=== PATIENT | male | born 1945 | race Caucasian/White ===

== ENCOUNTER 2017-01-02 15:17 | Inpatient (IN) | payer MEDICARE, OTHER ==
[~2017-01-02] VITALS: Ht 162.6 cm; Wt 90.8 kg
--- NOTE | 2017-01-02 02:45 | NUR ---
RECEIVED PATIENT IN BED AWAKE BUT FORGETFUL, NO SOB NO CHEST PAIN NOTED, NO COMPLAIN OF PAIN NOTED, RHYTHM SINUS RHYTHM CONT TO MONITOR.
[2017-01-02] MEDS ORDERED: ERGO500040 PO (16:13)
[2017-01-02] MEDS ORDERED: ZOLP10TA2 PO (16:13)
[2017-01-02] MEDS ORDERED: LORA-258 PO (16:13)
[2017-01-02] MEDS ORDERED: LACT10SO7 PO (16:13)
[2017-01-02] MEDS ORDERED: SULF1TAB48 PO (16:13)
[2017-01-02] MEDS ORDERED: IBUP-66 PO (16:13)
[2017-01-02] MEDS ORDERED: ASPI81TA31 PO (16:13)
[2017-01-02] MEDS ORDERED: BISA10SU12 RC (16:13)
[2017-01-02] MEDS ORDERED: CIPR-262 PO (16:13)
[2017-01-02] MEDS ORDERED: MAG-55 PO (16:13)
[2017-01-02] MEDS ORDERED: SENN-167 PO (16:13)
[2017-01-02] MEDS ORDERED: SERT50TA PO (16:13)
[2017-01-02] MEDS ORDERED: GABAPENTIN PO (16:13)
[2017-01-02] MEDS ORDERED: MAGN400O6 PO (16:13)
[2017-01-02] MEDS ORDERED: DULO60CA45 PO (16:13)
[2017-01-02] MEDS ORDERED: MULT1TAB11 PO (16:13)
[2017-01-02] MEDS ORDERED: ACET325T53 PO (16:13)
[2017-01-02] MEDS ORDERED: TAMS0.4C34 PO (16:13)
[2017-01-02] MEDS ORDERED: FERR-58 PO (16:13)
[2017-01-02] MEDS ORDERED: METO-304 PO (16:13)
[2017-01-02 16:27] LABS: CARBON DIOXIDE 25 mmol/L (21-32); CHLORIDE 100 mmol/L (98-107); CREATININE 4.4 mg/dL (0.6-1.3); GLUCOSE 127 mg/dL (74-106); POTASSIUM 5.5 mmol/L (3.5-5.1); UREA NITROGEN, BLOOD 50 mg/dL (7-18)
[2017-01-02 16:28] LABS: BASOPHILS # (AUTO) 0.1 K/uL (0.0-8.0); BASOPHILS % (AUTO) 0.4 % (0.0-2.0); EOSINOPHILS # (AUTO) 0.2 K/uL (0.0-0.7); EOSINOPHILS % (AUTO) 1.6 % (0.0-7.0); HEMATOCRIT 33.1 % (40-50); LYMPHOCYTES # (AUTO) 1.8 K/UL (0.8-4.8); MEAN CORPUSCULAR HEMOGLOBIN 31.6 UUG (27.0-31.0); MEAN CORPUSCULAR HGB CONC 33 g/dL (32.0-37.0); MEAN CORPUSCULAR VOLUME 95.3 FL (82.0-92.0); MONOCYTES # (AUTO) 1.5 K/UL (0.1-1.30); MONOCYTES % (AUTO) 10.5 % (0.0-11.0); NEUTROPHILS # (AUTO) 10.5 K/UL (1.8-8.9); NEUTROPHILS % (AUTO) 74.5 % (38.5-71.5); PLATELET COUNT (AUTO) 132 K/UL (150-450); RED BLOOD CELL COUNT(AUTO) 3.47 MIL/UL (4.7-6.1); WHITE BLOOD COUNT (AUTO) 14.1 K/UL (4.0-11.2)
[2017-01-02 16:33] LABS: ALANINE AMINOTRANSFERASE 103 U/L (16-63); ALKALINE PHOSPHATASE 80 U/L (50-136); ASPARTATE AMINOTRANSFERASE 191 U/L (15-37); BILIRUBIN,DIRECT 0.7 mg/dL (0.0-0.2); BILIRUBIN,TOTAL 1.1 mg/dL (0.2-1.0); TOTAL PROTEIN, SERUM 8.2 g/dL (6.4-8.2)
[2017-01-02 16:34] LABS: ACETAMINOPHEN < 2.0 ug/mL (10-30)
[2017-01-02 16:37] LABS: ETHANOL < 3 MG/DL (0-0)
[2017-01-02 17:08] LABS: THYROID STIMULATING HORMONE 3.135 mIU/mL (0.358-3.740)
--- NOTE | 2017-01-02 17:16 | NUR ---
Per Dr. Espinoza pt is not medically clear and will be admitted to tele for rental failure. Call placed to [facility].
--- NOTE | 2017-01-02 17:56 | NUR ---
Per Dr. Espinoza he spoke with Dr. Garcia via telephone and pt may be trans to tele. SBAR report given to Bette.
--- NOTE | 2017-01-02 18:00 | NUR ---
Pt trans to tele, NAD noted.
[2017-01-02 18:29] LABS: *BLOOD, URINE Trace-lysed (NEGATIVE); *COLOR,URINE AMBER (YELLOW); *KETONES,URINE NEGATIVE (NEGATIVE); *PROTEIN,URINE 1+ (NEGATIVE); *UROBILINOGEN,URINE 0.2 E.U./dl (NORMAL); LEUKOCYTE ESTERASE ,URINE NEGATIVE (NEGATIVE); NITRITE, URINE NEGATIVE (NEGATIVE); PH,URINE 5.5 (5.0-8.0); UGLUCOSE NEGATIVE (NEGATIVE)
[2017-01-02 18:30] VITALS: BP 96/51
--- NOTE | 2017-01-02 18:31 | NUR ---
71 year old male received from er via [facility] for acute renal failure to room 224 .v/s are stable ,call light with in reach.
[2017-01-02 18:52] LABS: *AMPHETAMINE, URINE NEGATIVE (NEGATIVE); *BARBITURATE, URINE NEGATIVE (NEGATIVE); *CANNABINOID, URINE NEGATIVE (NEGATIVE); *COCCAINE, URINE NEGATIVE (NEGATIVE); *OPIATE, URINE POSITIVE (NEGATIVE); *PHENCYCLIDINE SCREEN,URINE NEGATIVE (NEGATIVE)
[2017-01-02 18:58] LABS: *BILIRUBIN,URIN 2+ (NEGATIVE); *CLARITY,URINE SLIGHTLY HAZY (CLEAR)
[2017-01-02 19:00] LABS: CALCIUM OXALATE CRYSTALS,UR RARE /HPF (NONE SEEN); MUCUS,URINE FEW /LPF (0-FEW); RBC,URINE 20-50 /HPF (0-3); SQUAMOUS EPITHELIAL CELL,UR FEW /HPF (NONE SEEN); URINE AMORPHOUS URATE FEW /HPF
[2017-01-02 19:13] LABS: BAND % (MANUAL) 26 % (0-10); EOSINOPHILS % (MANUAL) 3 % (0-8); LYMPHOCYTES % (MANUAL) 15 % (20-40); MONOCYTES % (MANUAL) 12 % (2-10); NEUTROPHILS % (MANUAL) 44 % (42-75)
[2017-01-02 20:00] VITALS: BP 101/53
[2017-01-02] MEDS ORDERED: VANCOMYCIN IV 1 G in PREMIXED 0 EACH IV STA (22:07)
[2017-01-02] MEDS ORDERED: ONDANSETRON 4 MG/2 ML VIAL IV PRN (22:15)
[2017-01-02] MEDS ORDERED: CEFTRIAXONE 1 G in IV DEXTROSE 5% 50 ML IV SCH (22:15)
[2017-01-02] MEDS ORDERED: SODIUM POLYSTYRENE SULFONATE 15 G/60 ML LIQUID UDC PO ONE (22:15)
[2017-01-02] MEDS ORDERED: Z GUARD REMEDY PASTE 57 GM TUBE TOP PRN (22:15)
[2017-01-02] MEDS: IV NS 1000 ML 1,000 ML IV PRN (23:04)
[2017-01-02] MEDS ORDERED: SODIUM POLYSTYRENE SULFONATE 15 G/60 ML LIQUID UDC ONE (23:08)
[2017-01-03] VITALS: BP 107/45
[2017-01-03] MEDS ORDERED: VANCOMYCIN IV 200 ML ONE (00:31)
[2017-01-03] MEDS ORDERED: CEFTRIAXONE 1 G VIAL ONE (00:48)
[2017-01-03 04:00] VITALS: BP 101/64
[2017-01-03 04:57] LABS: BASOPHILS # (AUTO) 0.1 K/uL (0.0-8.0); BASOPHILS % (AUTO) 0.6 % (0.0-2.0); EOSINOPHILS # (AUTO) 0.5 K/uL (0.0-0.7); EOSINOPHILS % (AUTO) 4.1 % (0.0-7.0); HEMATOCRIT 33.5 % (40-50); HEMOGLOBIN 10.9 G/DL (14.0-18.0); LYMPHOCYTES # (AUTO) 2.2 K/UL (0.8-4.8); LYMPHOCYTES % (AUTO) 18.6 % (20.5-51.5); MEAN CORPUSCULAR HEMOGLOBIN 31.2 UUG (27.0-31.0); MEAN CORPUSCULAR HGB CONC 33 g/dL (32.0-37.0); MEAN CORPUSCULAR VOLUME 95.7 FL (82.0-92.0); MONOCYTES % (AUTO) 8.4 % (0.0-11.0); NEUTROPHILS # (AUTO) 7.8 K/UL (1.8-8.9); NEUTROPHILS % (AUTO) 68.3 % (38.5-71.5); PLATELET COUNT (AUTO) 137 K/UL (150-450); RED BLOOD CELL COUNT(AUTO) 3.51 MIL/UL (4.7-6.1); WHITE BLOOD COUNT (AUTO) 11.6 K/UL (4.0-11.2)
[2017-01-03 05:26] LABS: CREATININE 3.9 mg/dL (0.6-1.3); MAGNESIUM 1.9 mg/dL (1.8-2.4); PHOSPHOROUS 4.5 mg/dL (2.5-4.9); POTASSIUM 3.8 mmol/L (3.5-5.1); TOTAL PROTEIN, SERUM 8.4 g/dL (6.4-8.2)
[2017-01-03 05:59] LABS: THYROID STIMULATING HORMONE 5.082 mIU/mL (0.358-3.740)
--- NOTE | 2017-01-03 07:15 | NUR ---
PATIENT HAS NO URINE, NOTIFY MD WITH ORDER.
--- NOTE | 2017-01-03 07:15 | NUR ---
PATIENT SLEPT ON AND OFF ALL NIGHT NO SOB NO CHEST PAIN, CALL LIGHT WITHIN REACH. CONT TO MONITOR. RHYTHM SINUS RHYTHM. ENDORSE TO NEXT SHIFT.
--- NOTE | 2017-01-03 08:00 | NUR ---
PATIENT IS HERE AT THE NURSES STATION HE HAD PULLED OFF HIS TELEMETRY HIS IV PUMP BEEPING AND STATED THAT HIS BELONGINGS ARE MISSING ASSISTED HIM BACK TO HIS ROOM CHECKED HIS BELONGINGS AND ALL THAT IS RECORDED ARE ALL PRESENT IN HIS ROOM AND CLOSET HE IS WEARING HIS WATCH AND THE CELL PHONE IS ON HIS BED.PATIENT REASSURED THAT ALL THAT HE BROUGHT IN ARE ALL PRESENT AND THEN HAS STATED OKAY AND HE ALLOWED ME TO REPLACE HIS TELEMETRY AT THIS TIME.
[2017-01-03] MEDS: FERROUS SULFATE 325 MG TABEC PO SCH (08:41)
[2017-01-03] MEDS: METOPROLOL SUCCINATE XL 50 MG TAB.SR.24H PO SCH (08:42)
[2017-01-03] MEDS: ASPIRIN 81 MG TAB.CHEW PO SCH (08:42)
[2017-01-03] MEDS: TAMSULOSIN HCL 0.4 MG CAP.SR.24H PO SCH (08:42)
[2017-01-03] MEDS: LACTULOSE 20 G/30 ML LIQUID UDC PO SCH ×2 (08:53→17:00)
[2017-01-03] MEDS ORDERED: LACTULOSE 20 G/30 ML LIQUID UDC PO SCH (09:00)
[2017-01-03] MEDS: DULOXETINE 60 MG CAPSULE.DR PO SCH (10:37)
[2017-01-03] MEDS: GABAPENTIN 100 MG CAPSULE PO SCH ×3 (10:37→17:08)
[2017-01-03 12:00] VITALS: BP 143/75
--- NOTE | 2017-01-03 14:50 | NUR ---
PATIENT STATED WANTS TO LEAVE AGAINST MEDICAL [facility]VISE STATED THAT HE CALLED [facility] AND THEY ARE READY TO TAKE HIM BACK STATED WILL TAKE THE TAXI DISCONNECTED HIS IV AND REFUSED TO HAVE IT RECONNECTED SO I CALLED THE WIRE ROPE FABRICATION SUPERVISOR SINCE PATIENT THE PATIENT CAME HERE FOR MEDICAL CLEARANCE.THE WIRE ROPE FABRICATION SUPERVISOR STATED THAT SHE CALLED [facility] AND THEY SAID TO TELL HIN TO WAIT UNTIL THURSDAY BUT THE PATIENT IS HERE AT THE NURSES STATED GOING ON AND ON THAT WE CANNOT HOLD HIM AGAINST HIS WILL.CALLED DR CORTES AND LEFT A MESSAGE.
--- NOTE | 2017-01-03 15:00 | NUR ---
DR WHIPPLE STATED THAT PATIENT IS NOT MEDICALLY CLEAR AND CANNOT LEAVE SO THE CRISIS TEAM WAS CALLED TO EVALUATE PATIENT
[2017-01-03 16:00] VITALS: BP 136/76
--- NOTE | 2017-01-03 16:35 | NUR ---
CRISIS TEAM HERE AND PATIENT PLACED ON 72 HOUR HOLD AND ONE ON ONE SITTER FOR OBSERVATION.PATIENT IS MORE COOPERATIVE NOW COMPLIANT WITH HIS MEDICATIONS EXCEPT THE LACTULOSE.
--- NOTE | 2017-01-03 16:53 | NUR ---
Clinical Pharmacy Note: Vancomycin Pharmacy to Dose Subjective: To start vancomycin in this 71 y/o gentleman for "suspected infection."Pt currently in ARF and is NOT on HD Objective: height 162 cm weight 90 kg BUN 54 Scr 3.9 (ARF) WBc 11.6 temp 98.8 vancomycin 1gm given in ER 01/03 @0033 Assessment/Plan Due to ARF, will dose per fall off level for now. No dose for today since 1gm given in ER around midnight. random level ordered with am labs tomorrow due at 0600. Will check level and re-dose as appropriate. Will continue to follow
[2017-01-03] MEDS: SERTRALINE HCL 50 MG TABLET PO SCH (17:08)
--- NOTE | 2017-01-03 17:37 | NUR ---
IVF RESTARTED AT THIS TIME.
[2017-01-03 20:00] VITALS: BP 131/77
--- NOTE | 2017-01-03 20:00 | NUR ---
Received pt on bed alert and awake. Able to make needs known. No acute distress noted. No complaints of pain or discomfort during this time. No SOB noted. Calm and cooperative to care. IV intact and patent. Vital signs stable. Call light within reach. All needs anticipated.
[2017-01-03] MEDS: CEFTRIAXONE 1 G in IV DEXTROSE 5% 50 ML IV SCH (21:06)
[2017-01-03] MEDS: ACETAMINOPHEN 325 MG TABLET PO PRN (21:14)
--- NOTE | 2017-01-03 23:38 | NUR ---
Pt requested to have his IV held during the night. Pt verbalized that he keeps on going to the bathroom that's why he doesn't want to be hooked up with his IV. Explained risk and benefits, but still pt refuses.
[2017-01-04] MEDS: ACETAMINOPHEN 325 MG TABLET PO PRN ×2 (03:49→13:45)
[2017-01-04 05:03] VITALS: BP 110/57
--- NOTE | 2017-01-04 06:50 | NUR ---
Pt slept well throughout the shift. No acute distress noted. No complaints of pain or discomfort. Vital signs stable. Call light within reach. All needs attended.
[2017-01-04 06:57] LABS: BASOPHILS % (AUTO) 0.2 % (0.0-2.0); EOSINOPHILS # (AUTO) 0.3 K/uL (0.0-0.7); EOSINOPHILS % (AUTO) 4.4 % (0.0-7.0); HEMOGLOBIN 10.2 G/DL (14.0-18.0); LYMPHOCYTES # (AUTO) 1.3 K/UL (0.8-4.8); LYMPHOCYTES % (AUTO) 21.9 % (20.5-51.5); MEAN CORPUSCULAR HGB CONC 34 g/dL (32.0-37.0); MEAN CORPUSCULAR VOLUME 97.1 FL (82.0-92.0); MONOCYTES # (AUTO) 0.9 K/UL (0.1-1.30); MONOCYTES % (AUTO) 15.8 % (0.0-11.0); NEUTROPHILS # (AUTO) 3.4 K/UL (1.8-8.9); NEUTROPHILS % (AUTO) 57.7 % (38.5-71.5); PLATELET COUNT (AUTO) 127 K/UL (150-450)
[2017-01-04 07:02] LABS: HEMATOCRIT 29.9 % (40-50); RED BLOOD CELL COUNT(AUTO) 3.08 MIL/UL (4.7-6.1); WHITE BLOOD COUNT (AUTO) 5.9 K/UL (4.0-11.2)
[2017-01-04 07:05] LABS: CREATININE 1.5 mg/dL (0.6-1.3); MAGNESIUM 1.6 mg/dL (1.8-2.4); PHOSPHOROUS 2.6 mg/dL (2.5-4.9)
[2017-01-04 07:34] LABS: POTASSIUM 2.8 mmol/L (3.5-5.1)
--- NOTE | 2017-01-04 08:00 | NUR ---
POTASSIUM LEVEL 2.8 MAG IS 1.[address] TOBIAS CORTES AND HE STATED ON HIS WAY WILL SEE PATIENT.
[2017-01-04] MEDS: TAMSULOSIN HCL 0.4 MG CAP.SR.24H PO SCH (08:11)
[2017-01-04] MEDS: ASPIRIN 81 MG TAB.CHEW PO SCH (08:11)
[2017-01-04] MEDS: GABAPENTIN 100 MG CAPSULE PO SCH ×3 (08:11→17:01)
[2017-01-04] MEDS: DULOXETINE 60 MG CAPSULE.DR PO SCH (08:11)
[2017-01-04] MEDS: FERROUS SULFATE 325 MG TABEC PO SCH (08:11)
[2017-01-04] MEDS: METOPROLOL SUCCINATE XL 50 MG TAB.SR.24H PO SCH (08:12)
[2017-01-04] MEDS: LACTULOSE 20 G/30 ML LIQUID UDC PO SCH ×2 (08:17→17:00)
[2017-01-04] MEDS: IV NS 1000 ML 1,000 ML IV PRN (08:24)
[2017-01-04 08:38] LABS: BAND % (MANUAL) 13 % (0-10); EOSINOPHILS % (MANUAL) 3 % (0-8); LYMPHOCYTES % (MANUAL) 21 % (20-40); METAMYELOCYTES % 1 % (0-1); MONOCYTES % (MANUAL) 13 % (2-10); NEUTROPHILS % (MANUAL) 49 % (42-75)
--- NOTE | 2017-01-04 09:21 | NUR ---
IV SITE INFILTERATED RESTARTED TO HIS LEFT FOREARM AND IVF RESTARTED ORDERED PATIENT REMAINS ON HOLD AT THIS TIME COOPERATIVE AND COMPLIANT WITH HIS MEDICATIONS VOIDING USING THE URINAL.PATIENT INSTRUCTED THAT WE NEED TO KEEP ACCURATE OUT PUT TO ENSURE THAT HE IS VOIDING WELL.
[2017-01-04] MEDS ORDERED: POTASSIUM CHLORIDE 20 MEQ TAB.PRT.SR PO ONE ×2 (10:00→11:15)
[2017-01-04] MEDS ORDERED: MAGNESIUM OXIDE 400 MG TABLET PO ONE (10:00)
--- NOTE | 2017-01-04 10:05 | NUR ---
DR TOBIAS CORTES HERE WITH NEW ORDERS AND NOTED.
[2017-01-04] MEDS ORDERED: VANCOMYCIN IV 1,250 MG in IV DEXTROSE 5% 500 ML IV ONE (11:00)
[2017-01-04] MEDS: HYDROCODONE BIT/HOMATROPINE 5 ML UDC PO PRN ×3 (11:02→23:02)
[2017-01-04] MEDS: POTASSIUM CHLORIDE 10 MEQ CAPSULE.SA PO SCH ×2 (11:03→13:45)
[2017-01-04 11:28] VITALS: BP 140/82
--- NOTE | 2017-01-04 13:48 | NUR ---
Clinical Pharmacy Note: Vancomycin Pharmacy to Dose Subjective: To continue vancomycin in this 71 y/o gentleman for sepsis, UTI, R/O pna. "Pt currently in ARF and is NOT on HD Objective: height 162 cm weight 90 kg BUN 28 Scr 1.5 (ARF) WBC 5.9 temp 98.1 vanco random level: 4.4 (with am labs- post 1gm dose in ED on 01/03 at 0030) Assessment/Plan Due to ARF (srcr decreasing), will dose per fall off level for now. Since vanco random level is low, will give vancomycin 1250mg IVPB x1 today at 1100. Will check random level with am labs tomorrow. Will check level and re-dose as appropriate. Will continue to follow
--- NOTE | 2017-01-04 15:00 | NUR ---
DR RODRIGUEZ HERE TO SEE PATIENT WITH NEW ORDERS AND NOTED.
[2017-01-04] MEDS ORDERED: DULOXETINE 30 MG CAPSULE.DR PO SCH (15:30)
[2017-01-04 16:03] VITALS: BP 143/84
[2017-01-04] MEDS: SERTRALINE HCL 50 MG TABLET PO SCH (17:01)
--- NOTE | 2017-01-04 18:00 | NUR ---
PATIENT REMAINS ON HOLD ORDERED WITH ONE ON ONE SITTER AT THIS TIME CONTINUES TO BE COMPLIANT WITH ALL OF HIS MEDICATIONS EXCEPT REFUSED HIS PM LACTULOSE ALERT ORIENTED AND COOPERATIVE WITH CARE MADE COMFORTABLE AND WILL CONTINUE TO PROVIDE SAFE AND THERAPEUTIC ENVIRONMENT AT ALL TIMES.
--- NOTE | 2017-01-04 19:35 | NUR ---
PT RECEIVED IN BED, AWAKE. 1:1 SITTER AT BEDSIDE FOR SAFETY. A/OX4. ABLE TO MAKE NEEDS KNOWN. V/S STABLE. IN NO ACUTE DISTRESS. NO C/O PAIN AT THIS TIME. IVF INFUSING. PT ON 2L NC, TOLERATING WELL. SAFETY MEASURES IMPLEMENTED. CALL LIGHT WITHIN REACH. WILL CONT TO MONITOR.
[2017-01-04 20:05] VITALS: BP 145/79
[2017-01-04] MEDS: GUAIFENESIN LA 600 MG TABLET.SA PO SCH (20:41)
[2017-01-04] MEDS: CEFTRIAXONE 1 G in IV DEXTROSE 5% 50 ML IV SCH (20:41)
[2017-01-04] MEDS ORDERED: OLANZAPINE ZYDIS 5 MG TAB.RAPDIS PO SCH (21:00)
[2017-01-05] MEDS: IV NS 1000 ML 1,000 ML IV PRN (01:23)
[2017-01-05] MEDS: HYDROCODONE BIT/HOMATROPINE 5 ML UDC PO PRN ×2 (05:23→12:31)
[2017-01-05] MEDS ORDERED: HYDROCODONE BIT/HOMATROPINE 5 ML UDC ONE (05:25)
[2017-01-05 06:01] VITALS: BP 138/81
--- NOTE | 2017-01-05 06:28 | NUR ---
END OF SHIFT NOTES. PT SLEPT WELL THROUGHOUT SHIFT. IN STABLE CONDITION. 1:1 SITTER AT BEDSIDE FOR SAFETY. IVF INFUSING. ALL NEEDS ATTENDED. SAFETY MAINTAINED. CALL LIGHT WITHIN REACH.
[2017-01-05 06:49] LABS: BASOPHILS % (AUTO) 0.2 % (0.0-2.0); EOSINOPHILS # (AUTO) 0.2 K/uL (0.0-0.7); EOSINOPHILS % (AUTO) 6.8 % (0.0-7.0); HEMATOCRIT 29.2 % (40-50); HEMOGLOBIN 10.1 G/DL (14.0-18.0); LYMPHOCYTES % (AUTO) 28.5 % (20.5-51.5); MEAN CORPUSCULAR HEMOGLOBIN 33.4 UUG (27.0-31.0); MEAN CORPUSCULAR HGB CONC 34 g/dL (32.0-37.0); MEAN CORPUSCULAR VOLUME 97.1 FL (82.0-92.0); MONOCYTES # (AUTO) 0.5 K/UL (0.1-1.30); MONOCYTES % (AUTO) 15.1 % (0.0-11.0); NEUTROPHILS # (AUTO) 1.9 K/UL (1.8-8.9); NEUTROPHILS % (AUTO) 49.4 % (38.5-71.5); PLATELET COUNT (AUTO) 122 K/UL (150-450); RED BLOOD CELL COUNT(AUTO) 3.01 MIL/UL (4.7-6.1); WHITE BLOOD COUNT (AUTO) 3.6 K/UL (4.0-11.2)
[2017-01-05 08:11] LABS: BILIRUBIN,TOTAL 0.5 mg/dL (0.2-1.0); MAGNESIUM 1.3 mg/dL (1.8-2.4); PHOSPHOROUS 2.5 mg/dL (2.5-4.9); POTASSIUM 3.3 mmol/L (3.5-5.1); TOTAL PROTEIN, SERUM 6.8 g/dL (6.4-8.2); VANCOMYCIN,RANDOM 9.9 ug/mL (18.0-26.0)
[2017-01-05] MEDS: DULOXETINE 60 MG CAPSULE.DR PO SCH (08:27)
[2017-01-05] MEDS: GABAPENTIN 100 MG CAPSULE PO SCH ×2 (08:28→12:17)
[2017-01-05] MEDS: TAMSULOSIN HCL 0.4 MG CAP.SR.24H PO SCH (08:28)
[2017-01-05] MEDS: METOPROLOL SUCCINATE XL 50 MG TAB.SR.24H PO SCH (08:28)
[2017-01-05] MEDS: FERROUS SULFATE 325 MG TABEC PO SCH (08:28)
[2017-01-05] MEDS: ASPIRIN 81 MG TAB.CHEW PO SCH (08:28)
--- NOTE | 2017-01-05 08:30 | NUR ---
AWAKE ALERT AND AWARE PATIENT SEEMS TO BE STARTING TO WORK SELF UP STATED THAT HIS HOLD ENDS TODAY AND HE WANTS TO BE ABLE TO LEAVE EXPLAINED TO HIM THAT HIS 72 HOURS HOLD ENDS ON THURSDAY ABOUT 1634 BUT HE DOES NOT ACCEPT THIS AND HE WANTS TO TALK WITH THE YARN SPOOLER.MESSAGE LEFT WITH THE YARN SPOOLER TO SPEAK WITH THE PATIENT.
[2017-01-05] MEDS: LACTULOSE 20 G/30 ML LIQUID UDC PO SCH (08:36)
[2017-01-05] MEDS: GUAIFENESIN LA 600 MG TABLET.SA PO SCH (08:37)
[2017-01-05] MEDS ORDERED: VANCOMYCIN IV 1,500 MG in IV DEXTROSE 5% 500 ML IV SCH (09:00)
[2017-01-05 09:49] VITALS: BP 147/80
[2017-01-05 10:26] LABS: EOSINOPHILS % (MANUAL) 8 % (0-8); LYMPHOCYTES % (MANUAL) 30 % (20-40); MONOCYTES % (MANUAL) 7 % (2-10); NEUTROPHILS % (MANUAL) 55 % (42-75)
[2017-01-05] MEDS ORDERED: OLANZAPINE 10 MG VIAL IM STA (11:06)
[2017-01-05] MEDS ORDERED: CEFU500T66 PO ×2 (11:07→15:34)
--- NOTE | 2017-01-05 11:10 | NUR ---
PATIENT IS GETTING VERY AGITATED AND ANXIOUS AND WANTS TO LEAVE THE JOURNALISM INTERN DID SPEAK WITH HIM DR TOBIAS CORTES AWARE THAT PATIENT IS GETTING VERY ANXIOUS WITH ORDER FOR ZYPREXA IM STAT.DR TOBIAS CORTES WAS NOTIFIED THAT PATIENTS POTASSIUM LEVEL IS 3.3 AND MAG IS 1.3 TODAY WITH NO NEW ORDERS AT THIS TIME.
--- NOTE | 2017-01-05 11:35 | NUR ---
patient medicated i.m with zyprexa as ordered.
--- NOTE | 2017-01-05 11:57 | NUR ---
Clinical Pharmacy Note: Vancomycin Pharmacy to Dose Subjective: To continue vancomycin in this 71 y/o gentleman for sepsis, UTI, R/O pna. Objective: height 162 cm weight 90 kg BUN 17 Scr 1.0 WBC 3.6 temp 98.6 vanco random level: 9.9 (with am labs - post vancomycin 1250mg IVPB x1 given yesterday at 1100) Assessment/Plan Since srcr has decreased, will start vanco 1500mg IVPB q19hr for predicted vanco trough level of 15.8 mcg/ml at steady state. 1st dose was given today at 0900. Plan to draw vanco trough level before 4th dose (level not yet ordered). Will monitor renal fucntion & adjust the dose if needed. will continue to follow
[2017-01-05] MEDS ORDERED: POTASSIUM CHLORIDE 20 MEQ TAB.PRT.SR PO ONE (12:00)
[2017-01-05] MEDS: MAGNESIUM OXIDE 400 MG TABLET PO SCH ×2 (12:17→13:55)
[2017-01-05 12:24] VITALS: BP 132/91
--- NOTE | 2017-01-05 12:30 | NUR ---
ASKED PATIENT TO SIGN HIS DISCHARGE INSTRUCTIONS AND HE STATED THAT HE IS UNABLE TO AT THIS TIME.
--- NOTE | 2017-01-05 13:44 | NUR ---
CALLED THE [facility] AND REPORT GIVEN THE HIS RECEIVING NURSE FOR CONTINUING CARE.
--- NOTE | 2017-01-05 14:04 | NUR ---
PATIENT DISCHARGED TAKEN DOWN BY W/CHAIR TO [facility] TO ROOM 141B WITH ALL OF HIS PERSONAL BELONGINGS.PATIENT IS ALERT AWARE AND COOPERATIVE AT THIS TIME.
[2017-01-07] MEDS ORDERED: ERGOCALCIFEROL 50,000 UNIT CAPSULE PO SCH (07:46)
== END 2017-01-05 14:00 | DRG 871 ==
LOC: ER 15:18 → TELE 17:57 → MED 01-03 11:20
PROVIDERS: ADMIT Nurse Practitioner Acute Care; ATTEND Nurse Practitioner Acute Care
DX: A41.9 Sepsis, unspecified organism (principal); G93.41 Metabolic encephalopathy; N17.0 Acute kidney failure with tubular necrosis; J15.9 Unspecified bacterial pneumonia; F33.2 Major depressive disorder, recurrent severe without psychotic features; N39.0 Urinary tract infection, site not specified; M86.8X6 Other osteomyelitis, lower leg; N13.9 Obstructive and reflux uropathy, unspecified; R65.20 Severe sepsis without septic shock; I13.10 Hypertensive heart and chronic kidney disease without heart failure, with stage 1 through stage 4 chronic kidney disease, or unspecified chronic kidney disease; N18.9 Chronic kidney disease, unspecified; K74.60 Unspecified cirrhosis of liver; B19.20 Unspecified viral hepatitis C without hepatic coma; I25.10 Atherosclerotic heart disease of native coronary artery without angina pectoris; Z95.5 Presence of coronary angioplasty implant and graft; Z59.0 Homelessness; N40.0 Benign prostatic hyperplasia without lower urinary tract symptoms; G89.29 Other chronic pain; Z79.891 Long term (current) use of opiate analgesic; F10.20 Alcohol dependence, uncomplicated; Y90.9 Presence of alcohol in blood, level not specified; Z79.899 Other long term (current) drug therapy; K43.2 Incisional hernia without obstruction or gangrene; Z96.653 Presence of artificial knee joint, bilateral; E03.9 Hypothyroidism, unspecified; E11.22 Type 2 diabetes mellitus with diabetic chronic kidney disease; E83.42 Hypomagnesemia; E87.6 Hypokalemia; K21.9 Gastro-esophageal reflux disease without esophagitis; E11.69 Type 2 diabetes mellitus with other specified complication
CPT/HCPCS: 36415; 70030-TC; 70450; 71010; 76700; 80307; 83690; 83735; 84100; 84443; 85025; 85610; 85730; 87040; 87086; 93005; 93307; A4663; C1758; G0480; G0480-TC; J0696; J2358; J2405; J3370; J3490; J7030; J7060

== ENCOUNTER 2017-01-05 14:50 | Inpatient (IN) | payer MEDICARE, OTHER ==
[~2017-01-05] VITALS: Ht 170.2 cm; Wt 86.2 kg
[~2017-01-05 14:50] MED LIST: ACET325T53 PO; ASPI81TA31 PO; BISA10SU12 RC; CEFU500T66 PO; CIPR-262 PO; DULO60CA45 PO; ERGO500040 PO; FERR-58 PO; GABAPENTIN PO; IBUP-66 PO; LACT10SO7 PO; LORA-258 PO; MAG-55 PO; MAGN400O6 PO; METO-304 PO; MULT1TAB11 PO; SENN-167 PO; SERT50TA PO; SULF1TAB48 PO; TAMS0.4C34 PO; ZOLP10TA2 PO
--- NOTE | 2017-01-05 15:00 | NUR ---
PT IS RECEIVED TO CARE FROM [facility]. REPORT RECEIVED FROM ERICKA SOSA. PT IS A/O X2-3. PT IS FORGETFUL. PT HAS POOR INSIGHT, DENIES EVENTS DESCRIBED IN THE HOLD. PT HAS NO PLAN FOR SELF CARE. PT CONTRACTS FOR SAFETY AND SAYS HE WOULD NOT TRY TO LEAVE THE UNIT UNTIL DISCHARGED. PT'S SISTER DAO ARRIAZA WAS NOTIFIED. DR. GRULLON AND DR. TOBIAS CORTES WERE NOTIFIED ABOUT THE ADMISSION.
[2017-01-05] MEDS ORDERED: CEFU500T66 PO (15:34)
[2017-01-05] MEDS ORDERED: ACETAMINOPHEN 325 MG TABLET PO PRN ×2 (16:15→17:00)
[2017-01-05] MEDS ORDERED: TEMAZEPAM 7.5 MG CAPSULE PO PRN (16:15)
[2017-01-05] MEDS ORDERED: MAG HYDROX/AL HYDROX/SIMETH 30 ML LIQUID UDC PO PRN (16:15)
[2017-01-05] MEDS ORDERED: CLONAZEPAM 0.5 MG TABLET PO PRN (16:15)
[2017-01-05] MEDS ORDERED: MAGNESIUM HYDROXIDE 30 ML LIQUID UDC PO PRN ×2 (16:15→17:00)
[2017-01-05] MEDS ORDERED: TEMAZEPAM 15 MG CAPSULE PO PRN (16:30)
[2017-01-05] MEDS: IBUPROFEN 200 MG TABLET PO SCH (17:00)
[2017-01-05] MEDS: GABAPENTIN 100 MG CAPSULE PO SCH (17:00)
[2017-01-05] MEDS: LACTULOSE 20 G/30 ML LIQUID UDC PO SCH (17:00)
[2017-01-05 17:14] VITALS: BP_SYST 126; BP_SYST 145; BP_DIAS 64; BP_DIAS 76
[2017-01-05 20:13] VITALS: BP 133/75
[2017-01-05] MEDS: CIPROFLOXACIN HCL 250 MG TABLET PO SCH (20:22)
[2017-01-05] MEDS: CEFUROXIME AXETIL 250 MG TABLET PO SCH (20:23)
--- NOTE | 2017-01-05 23:21 | NUR ---
Patient was noted with mild dry cough. Pt is afebrile in no visible distress, V/S are all WNL. Dr Elle Chu was notify and new order was obtained to administer Robitussin DM Q6hrs PO PRN cough. Order noted and carried out. will continue to monitor.
[2017-01-05] MEDS ORDERED: GUAIFENESIN/DEXTROMETHORPHAN 5 ML UDC ONE (23:23)
[2017-01-06 07:30] VITALS: BP 124/62
[2017-01-06] MEDS: LACTULOSE 20 G/30 ML LIQUID UDC PO SCH ×3 (09:00→16:45)
[2017-01-06] MEDS: BISACODYL 10 MG SUPP.RECT RC SCH ×2 (09:00→09:10)
[2017-01-06] MEDS: CIPROFLOXACIN HCL 250 MG TABLET PO SCH (09:05)
[2017-01-06] MEDS: GABAPENTIN 100 MG CAPSULE PO SCH ×3 (09:05→16:45)
[2017-01-06] MEDS: FERROUS SULFATE 325 MG TABEC PO SCH (09:06)
[2017-01-06] MEDS: OLANZAPINE ZYDIS 5 MG TAB.RAPDIS PO SCH ×2 (09:06→20:21)
[2017-01-06] MEDS: TAMSULOSIN HCL 0.4 MG CAP.SR.24H PO SCH (09:06)
[2017-01-06] MEDS: IBUPROFEN 200 MG TABLET PO SCH ×3 (09:06→16:45)
[2017-01-06] MEDS: ASPIRIN 81 MG TAB.CHEW PO SCH (09:06)
[2017-01-06] MEDS: METOPROLOL SUCCINATE XL 50 MG TAB.SR.24H PO SCH (09:08)
[2017-01-06] MEDS: SENNOSIDES 1 TABLET PO SCH (09:10)
[2017-01-06] MEDS: CEFUROXIME AXETIL 250 MG TABLET PO SCH ×2 (09:10→20:22)
[2017-01-06] MEDS: GUAIFENESIN/DEXTROMETHORPHAN 5 ML UDC PO PRN (10:10)
[2017-01-06] MEDS: DULOXETINE 60 MG CAPSULE.DR PO SCH (16:45)
[2017-01-06 17:09] VITALS: BP 126/68
[2017-01-06 20:00] VITALS: BP 129/69
[2017-01-06] MEDS ORDERED: OLANZAPINE ZYDIS 5 MG TAB.RAPDIS PO SCH (21:00)
[2017-01-07 07:30] VITALS: BP 146/68
[2017-01-07] MEDS ORDERED: MULTIVIT, IRON, MIN NO. 8, FA TABLET PO SCH (09:00)
[2017-01-07] MEDS ORDERED: ERGOCALCIFEROL 50,000 UNIT CAPSULE PO SCH (09:00)
[2017-01-07] MEDS: LACTULOSE 20 G/30 ML LIQUID UDC PO SCH (09:00)
[2017-01-07] MEDS: BISACODYL 10 MG SUPP.RECT RC SCH (09:00)
[2017-01-07] MEDS: FERROUS SULFATE 325 MG TABEC PO SCH (09:03)
[2017-01-07] MEDS: TAMSULOSIN HCL 0.4 MG CAP.SR.24H PO SCH (09:03)
[2017-01-07] MEDS: ASPIRIN 81 MG TAB.CHEW PO SCH (09:03)
[2017-01-07 09:04] VITALS: BP 146/68
[2017-01-07] MEDS: GABAPENTIN 100 MG CAPSULE PO SCH ×2 (09:04→12:44)
[2017-01-07] MEDS: SENNOSIDES 1 TABLET PO SCH (09:04)
[2017-01-07] MEDS: DULOXETINE 60 MG CAPSULE.DR PO SCH (09:04)
[2017-01-07] MEDS: METOPROLOL SUCCINATE XL 50 MG TAB.SR.24H PO SCH (09:04)
[2017-01-07] MEDS: OLANZAPINE ZYDIS 5 MG TAB.RAPDIS PO SCH (09:04)
[2017-01-07] MEDS: IBUPROFEN 200 MG TABLET PO SCH ×2 (09:04→12:44)
[2017-01-07] MEDS: CEFUROXIME AXETIL 250 MG TABLET PO SCH (09:08)
[2017-01-07] MEDS: GUAIFENESIN/DEXTROMETHORPHAN 5 ML UDC PO PRN (09:09)
--- NOTE | 2017-01-07 10:27 | NUR ---
DC Plan: Patient will be discharged to [facility] [[address], [place] [address]; ] via private transportation. 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 Patient is aware and agreeable to discharge plans. RENNY spoke with patient's sister Smiley [[phone]] and informed her of discharge plans. Patient will follow up with Dr. Eugene [Court Security Officer] and Dr. Caro [Psychiatrist]. Patient was provided a brief substance abuse intervention. Patient was provided referrals to [facility] [[phone]], [facility] [[phone]], and [facility] [[phone]].
--- NOTE | 2017-01-07 12:08 | NUR ---
DISCHARGE PLANNING TO [facility] TODAY AND PATIENT IS AWARE
--- NOTE | 2017-01-07 13:20 | NUR ---
PATIENT DISCHARGED PICKED UP BY THE [facility] IN SATISFACTORY CONDITION WITH DISCHARGE INSTRUCTIONS AND TMS AND REPORT WAS CALLED TO ALEAH AT THE [facility] FOR CONTINUING CARE.DISCHARGED WITH ALL HER PERSONAL BELONGINGS.
== END 2017-01-07 13:30 | DRG 885 ==
LOC: GPS 14:50
PROVIDERS: ADMIT Psychiatry & Neurology Psychiatry; ATTEND Internal Medicine
DX: F39 Unspecified mood [affective] disorder (principal); B19.20 Unspecified viral hepatitis C without hepatic coma; G93.40 Encephalopathy, unspecified; D68.59 Other primary thrombophilia; I11.9 Hypertensive heart disease without heart failure; Z91.19 Patient's noncompliance with other medical treatment and regimen; K74.69 Other cirrhosis of liver; F10.20 Alcohol dependence, uncomplicated; D50.9 Iron deficiency anemia, unspecified; Y90.0 Blood alcohol level of less than 20 mg/100 ml; E87.6 Hypokalemia; E66.9 Obesity, unspecified; M19.90 Unspecified osteoarthritis, unspecified site; K43.2 Incisional hernia without obstruction or gangrene; Z87.11 Personal history of peptic ulcer disease; Z96.659 Presence of unspecified artificial knee joint; Z95.5 Presence of coronary angioplasty implant and graft; I25.10 Atherosclerotic heart disease of native coronary artery without angina pectoris; E03.9 Hypothyroidism, unspecified; D63.8 Anemia in other chronic diseases classified elsewhere; Z74.09 Other reduced mobility; K21.9 Gastro-esophageal reflux disease without esophagitis; N40.0 Benign prostatic hyperplasia without lower urinary tract symptoms; Z86.73 Personal history of transient ischemic attack (TIA), and cerebral infarction without residual deficits; F11.90 Opioid use, unspecified, uncomplicated; Z68.29 Body mass index [BMI] 29.0-29.9, adult